=== PATIENT | male | born 1970 | race Caucasian/White ===

== ENCOUNTER 2024-01-11 03:08 | Emergency (ER) | payer MEDICAID ==
[~2024-01-11] VITALS: Ht 188 cm; Wt 131.6 kg
[2024-01-11] MEDS ORDERED: LISI-283 PO (03:39)
[2024-01-11] MEDS ORDERED: AMLO1TAB23 PO (03:39)
[2024-01-11 04:00] VITALS: BP 235/151; PULSE 82; RESP 16; TEMP 97.7; O2SAT 98
== END 2024-01-11 04:02 | disposition home or self-care (01) ==
LOC: ER 03:08
DX: I10 Essential (primary) hypertension (principal)